=== PATIENT | female | born 1990 | race Caucasian/White ===

== ENCOUNTER 2024-06-09 16:53 | Emergency (ER) | payer OTHER, SELFPAY ==
[2024-06-09 17:14] VITALS: BP 112/80; PULSE 79; RESP 18; TEMP 36.9; O2SAT 98; BMI 27.3
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
[2024-06-09] MEDS: IBUPROFEN 400 MG TABLET PO (18:00)
[2024-06-09] MEDS: ACETAMINOPHEN 325 MG TABLET PO (18:01)
[2024-06-09 18:03] VITALS: BP 135/61; PULSE 83; RESP 18; O2SAT 98
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
[2024-06-09 18:54] VITALS: BP 120/76; PULSE 98; O2SAT 98
[2024-06-09] MEDS: diazePAM 5 MG TABLET PO (19:05)
== END 2024-06-09 19:15 | disposition home or self-care (01) ==
PROVIDERS: Emergency Provider Emergency Medicine
DX: S16.1XXA Strain of muscle, fascia and tendon at neck level, initial encounter (principal); R07.89 Other chest pain; V89.2XXA Person injured in unspecified motor-vehicle accident, traffic, initial encounter
CPT/HCPCS: 71045; 99284